=== PATIENT | female | born 1980 | race Caucasian/White ===

== ENCOUNTER 2020-03-30 16:01 | Outpatient (REF) | payer OTHER, SELFPAY ==
--- NOTE | 2020-03-30 | MM_ITS ---
EXAMINATION: MM SCREENING DIGITAL BREAST TOMOSYNTHESIS, BILATERAL CLINICAL INFORMATION: Screening. Asymptomatic. The lifetime risk of breast cancer based on the Tyrer-Cuzick Model is 11.1%. COMPARISON: Mammography: None TECHNIQUE: Digital breast tomosynthesis is performed in both the craniocaudal and mediolateral oblique views along with computer-aided detection (CAD). Synthesized 2D images are generated from the tomosynthesis. FINDINGS: The breasts are almost entirely fatty (ACR BI-RADS breast composition Category a). There are no significant masses, abnormal calcifications, or other abnormalities. MM/MM tomosynthesis screening BI IMPRESSION: No specific mammographic evidence to suggest malignancy. ASSESSMENT: BI-RADS 1: Negative RECOMMENDATION: Routine annual mammography screening. This patient's information was entered into a reminder system with a target due date for their next mammogram.
== END 2020-03-30 16:02 | disposition home or self-care (01) ==
LOC: HO.MAMMO 16:01
PROVIDERS: PCP Internal Medicine; Visit Provider Internal Medicine
DX: Z12.31 Encounter for screening mammogram for malignant neoplasm of breast (principal)
CPT/HCPCS: 77063; 77067

== ENCOUNTER 2020-12-13 08:04 | Outpatient (REF) | payer OTHER, SELFPAY ==
[2020-12-13 10:25] LABS: Alanine Aminotransferase 14 U/L (0-31); Albumin Level 4.5 g/dL (3.5-5.0); Alkaline Phosphatase 41 U/L (39-117); Anion Gap 13 (12-20); Aspartate Amino Transferase 18 U/L (5-31); Bilirubin Total 0.6 mg/dL (0.0-1.0); Blood Urea Nitrogen 16 mg/dL (9-16); Calcium 9.8 mg/dL (8.4-10.2); Carbon Dioxide 25 mmol/L (22-29); Chloride 106 mmol/L (96-108); Cholesterol 183 mg/dL; Estimated Glomerular Filt Rate > 60; Glucose Fasting 84 mg/dL (60-99); HDL Cholesterol 42 mg/dL; LDL Cholesterol Calculated 124 mg/dl; Potassium 5.2 mmol/L (3.3-5.1); Sodium 139 mmol/L (135-145); Total Protein 7.3 g/dL (6.5-8.0); Triglycerides 86 mg/dL
== END 2020-12-13 08:05 | disposition home or self-care (01) ==
LOC: HO.LAB 08:04
PROVIDERS: PCP Internal Medicine; Visit Provider Internal Medicine
DX: E78.5 Hyperlipidemia, unspecified (principal); E78.2 Mixed hyperlipidemia
CPT/HCPCS: 36415; 80053; 80061

== ENCOUNTER 2021-04-25 15:32 | Outpatient (REF) | payer OTHER, SELFPAY ==
--- NOTE | ~2021-04-25 | MM_ITS ---
EXAMINATION: MM SCREENING DIGITAL BREAST TOMOSYNTHESIS, BILATERAL CLINICAL INFORMATION: Screening. Asymptomatic. The lifetime risk of breast cancer based on the Tyrer-Cuzick Model is 11%. COMPARISON: Mammography: 03/30/2020 (baseline) TECHNIQUE: Digital breast tomosynthesis is performed in both the craniocaudal and mediolateral oblique views along with computer-aided detection (CAD). Synthesized 2D images are generated from the tomosynthesis. FINDINGS: The breasts are almost entirely fatty (ACR BI-RADS breast composition Category a). Background stromal densities are stable. There is a stable small nodule posterior 3:00 left breast, likely intramammary node. The axilla and skin contours are unremarkable. No significant changes. MM/MM tomosynthesis screening BI IMPRESSION: No mammographic evidence of malignancy. ASSESSMENT: BI-RADS 2: Benign RECOMMENDATION: Routine annual mammography screening. This patient's information was entered into a reminder system with a target due date for their next mammogram.
== END 2021-04-25 15:33 | disposition home or self-care (01) ==
LOC: HO.MAMMO 15:32
PROVIDERS: PCP Internal Medicine; Visit Provider Internal Medicine
DX: Z12.31 Encounter for screening mammogram for malignant neoplasm of breast (principal)
CPT/HCPCS: 77063; 77067

== ENCOUNTER 2021-11-01 16:00 | Outpatient (REF) | payer OTHER, SELFPAY ==
[2021-11-01 16:52] LABS: Alanine Aminotransferase 14 U/L (0-31); Albumin Level 4.2 g/dL (3.5-5.0); Alkaline Phosphatase 37 U/L (39-117); Anion Gap 12 (12-20); Aspartate Amino Transferase 17 U/L (5-31); Bilirubin Total 0.5 mg/dL (0.0-1.0); Blood Urea Nitrogen 14 mg/dL (9-16); Calcium 8.9 mg/dL (8.4-10.2); Carbon Dioxide 26 mmol/L (22-29); Chloride 104 mmol/L (96-108); Estimated Glomerular Filt Rate > 60; Glucose Random 94 mg/dL (60-115); Potassium 4.2 mmol/L (3.3-5.1); Sodium 138 mmol/L (135-145)
== END 2021-11-01 16:01 | disposition home or self-care (01) ==
LOC: HO.LAB 16:00
PROVIDERS: PCP Internal Medicine; Visit Provider Internal Medicine
DX: R03.0 Elevated blood-pressure reading, without diagnosis of hypertension (principal)
CPT/HCPCS: 36415; 80053

== ENCOUNTER 2022-09-21 09:28 | Outpatient (REF) | payer OTHER, SELFPAY ==
--- NOTE | ~2022-09-21 | MM_ITS ---
EXAMINATION: MM SCREENING DIGITAL BREAST TOMOSYNTHESIS, BILATERAL CLINICAL INFORMATION: Screening. Asymptomatic. The lifetime risk of breast cancer based on the Tyrer-Cuzick Model is 11%. COMPARISON: Mammography: 04/25/2021, 03/30/2020 (baseline). TECHNIQUE: Digital breast tomosynthesis is performed in both the craniocaudal and mediolateral oblique views along with computer-aided detection (CAD). Synthesized 2D images are generated from the tomosynthesis. FINDINGS: The breasts are almost entirely fatty (ACR BI-RADS breast composition Category a). There are no significant masses, abnormal calcifications, or other abnormalities. No architectural abnormality or developing density or significant change from prior studies. Small intramammary node again seen posterior outer left breast. Background stromal markings are normal. MM/MM tomosynthesis screening BI IMPRESSION: No mammographic evidence of malignancy. ASSESSMENT: BI-RADS 2: Benign RECOMMENDATION: Routine annual mammography screening. This patient's information was entered into a reminder system with a target due date for their next mammogram.
== END 2022-09-21 09:29 | disposition home or self-care (01) ==
LOC: HO.MAMMO 09:28
PROVIDERS: PCP Internal Medicine; Visit Provider Internal Medicine
DX: Z12.31 Encounter for screening mammogram for malignant neoplasm of breast (principal)
CPT/HCPCS: 77063; 77067

== ENCOUNTER 2023-01-14 13:50 | Outpatient (AMB) | payer OTHER, SELFPAY ==
[2023-01-14 13:59] VITALS: BP 102/78; PULSE 94; O2SAT 100; BMI 21.3
--- NOTE | 2023-01-14 13:59 | MHC.PC.OV ---
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 Harrington. Medical history significant for anxiety and mixed hyperlipidemia among others. Patient reports left upper quadrant uncomfortable feeling and feeling like there is something inside. She also reports intermittent left flank discomfort-reports might be related to her herniated disc in the back. She denies changes in bladder. Reports intermittent diarrhea since starting semaglutide injections 05/2022. Reports intermittent gas. No constipation. No nausea or vomiting. No shortness of breath or chest pain. [facility] Medical History Anxiety Elevated blood pressure reading Mixed hyperlipidemia Transaminitis Surgical History No pertinent past surgical history Family History Father Bladder cancer Pituitary tumor Diabetes mellitus Dementia Mother Hypertension Maternal Grandmother Hypertension Paternal Grandmother Chronic mental illness Paternal Grandfather No problems noted. Family/Other Chronic mental illness Social History Housing: House Alcohol intake: current Alcohol intake frequency: holidays/special occasions only Alcohol type: wine Patient Tobacco Use Status: Former Tobacco user Tobacco use type: Cigarette e-Cigarette/Vaping Use: Never Used Second Hand Smoke Exposure: No service: No Current occupational status: employed Current occupational exposures/hazards: No Cognitive needs: No Hearing needs: No Vision needs: No Questionnaire Thrive Questionnaire Date Thrive assessed: 07/18/22 AUDIT C Alcohol Use Questionnaire (AUDIT-C) 1. How often do you have a drink containing alcohol?: Never Total Score: 0 Score Reviewed/Action Taken: No ROSSI-7 AMB Questionnaire ROSSI-7 Date ROSSI - 7 assessed: 07/18/22 Feeling nervous, anxious, or on edge: 1 = Several days Not being able to stop or control worryin = Not at all Worrying too much about different things: 0 = Not at all Trouble relaxin = Not at all Being so restless that it is hard to sit still: 0 = Not at all Becoming easily annoyed or irritable: 0 = Not at all Feeling afraid as if something awful might happen: 0 = Not at all Total ROSSI-7 score (0-4 normal; 5-9 mild; 10-14 moderate; 15-21 severe): 1 Source: Developed by Drs. Mehdi Luciano, Carisa Dominguez, Jaden Sorenson and colleagues, with an educational shawna from [employer]. ROSSI-7 Assessment Billing ROSSI-7 Assessment Tool: ROSSI-7 Assessment 98334 Review of Systems Const Denies body aches, Denies chills, Denies fever(s) and Denies headache(s) Eyes Denies change in vision ENT Denies dizziness, Denies otalgia, Denies headache(s), Denies nasal discharge, Denies sinus pain and Denies sore throat Card Denies chest pain, Denies edema, Denies lightheadedness and Denies dyspnea Resp Denies cough, Denies dyspnea and Denies wheezing GI Details: Intermittent gas Reports as per HPI, Denies abdominal pain, Denies constipation, Reports diarrhea (Intermittent), Denies nausea and Denies vomiting Denies dysuria Musc Denies myalgias Skin/Breast Denies rash Neuro Denies dizziness and Denies headache(s) Aller/Immun Denies wheezing Physical exam (Primary Care) Vital Signs: Last Vital Signs Pulse 94 01/14/23 13:59 BP 102/78 01/14/23 13:59 Pulse Ox 100 01/14/23 13:59 Oxygen Delivery Method Room Air 01/14/23 13:59 BMI result Body Mass Index 21.3 Tobacco/Smoking Status: Tobacco use Status Tobacco use date assessed 01/14/23 01/14/23 14:03 Patient Tobacco Use Status Former Tobacco user 01/14/23 14:03 Tobacco use type Cigarette 01/14/23 14:03 e-Cigarette/Vaping Use Never Used 01/14/23 14:03 Thrive Assessment: Date of Thrive Assessment Date Thrive assessed 07/18/22 01/14/23 14:03 Const General: cooperative and no acute distress Orientation/consciousness: patient oriented x3 HENMT Head: Yes normocephalic and Yes atraumatic Face and sinus: Yes sinuses nontender Mouth: oropharynx normal and moist mucous membranes Throat: Yes posterior oropharynx normal Eyes General: appearance normal, both eyes and all related structures Neck Neck: Yes normal visual inspection, Yes full ROM and Yes no lymphadenopathy Resp Effort & Inspection: normal respiratory effort and able to speak in complete sentences Auscultation: clear to auscultation bilaterally, no crackles, no rales, no rhonchi and no wheezes Cardio Rate: regular rate Rhythm: regular rhythm Heart sounds: S1 normal heart sound present and S2 normal heart sound present GI Inspection: Yes normal to inspection Palpation (GI): Soft to palpation, not firm, nontender, no guarding, not rigid and no hepatosplenomegaly Auscultation: normal bowel sounds General: No CVA tenderness Back/Spine/Pelvis Back: No CVA tenderness Skin General skin exam: no rashes or lesions noted Neuro General: patient oriented x3 Gait exam (Neuro): Normal gait present Extrem General: Yes full ROM and No edema Results AMB Urinalysis, Automated UA Leukoctes 0 Camryn/uL Last Edit by FRANKLIN Johnson on 01/14/23 14:20 UA Nitrite Negative Last Edit by FRANKLIN Johnson on 01/14/23 14:20 UA Urobilinogen 0.2 mg/dL Last Edit by FRANKLIN Johnson on 01/14/23 14:20 UA Protein 0 mg/dL Last Edit by FRANKLIN Johnson on 01/14/23 14:20 UA pH 6.5 Last Edit by FRANKLIN Johnson on 01/14/23 14:20 UA Blood 0 Rashid/uL Last Edit by FRANKLIN Johnson on 01/14/23 14:20 UA Specific Causey 1.015 Last Edit by FRANKLIN Johnson on 01/14/23 14:20 UA Ketone Negative Last Edit by FRANKLIN Johnson on 01/14/23 14:20 UA Bilirubin 0 mg/dL Last Edit by Cadence De La O GRACEJina on 01/14/23 14:20 UA Glucose 0 mg/dL Last Edit by Cadence De La O FRANKLIN on 01/14/23 14:20 Assessment and Plan Assessment & Plan (1) LUQ discomfort: Code(s): R10.12 - Left upper quadrant pain Plan: Urinalysis negative in the office today, patient denies any urinary symptoms. Physical exam with no acute findings. Will obtain abdominal ultrasound and blood work. Will notify of the results. Keep appointment with PCP as scheduled or follow-up sooner as needed. Signs and symptoms reviewed when to notify provider or go to the emergency department. Patient agreed with the plan. Orders: Orders Comprehensive Met. Panel Today R10.12 - Left upper quadrant pain Lipase Today R10.12 - Left upper quadrant pain Complete Blood Count Auto Diff Today R10.12 - Left upper quadrant pain US abdomen complete Today R10.12 - Left upper quadrant pain AMB Urinalysis Automated Today R10.9 - Unspecified abdominal pain Coding Level of Care Code Est Pt Level 3 (25633) Diagnoses LUQ discomfort R10.12 Additional Codes ROSSI-7 Assessment Billing - ROSSI-7 Assessment Tool: ROSSI-7 Assessment 82728 ([id number])
== END 2023-01-14 14:20 | disposition home or self-care (01) ==
PROVIDERS: PCP Internal Medicine; Visit Provider Nurse Practitioner Family
DX: R10.12 Left upper quadrant pain (principal); R10.9 Unspecified abdominal pain
CPT/HCPCS: 81003; 99213

== ENCOUNTER 2023-01-14 14:25 | Outpatient (REF) | payer OTHER, SELFPAY ==
[2023-01-14 14:37] LABS: MANUAL DIFF FLAG NO
[2023-01-14 14:46] LABS: Basophils Percent Auto 0.3 % (0-2); Eosinophils Absolute Auto 0.1 X10*3/uL (0.0-0.4); Eosinophils Percent Auto 1.2 % (0-4); Hematocrit 39.3 % (37.0-47.0); Imm Gran Abs Auto 0.01 X10*3/uL (0.00-0.03); Imm Gran Pct Auto 0.2 % (0.0-0.4); Lymphocytes Absolute Auto 1.7 X10*3/uL (1.2-4.9); Lymphocytes Percent Auto 29.3 % (20-40); Mean Corpuscular HGB Conc 33.1 g/dl (31.0-35.0); Mean Corpuscular Hemoglobin 29.4 pg (27.0-33.0); Mean Corpuscular Volume 88.9 fL (80.0-98.0); Mean Platelet Volume 9.9 fL (9.4-12.3); Monocytes Absolute Auto 0.3 X10*3/uL (0.1-1.2); Monocytes Percent Auto 4.3 % (2-11); Neutrophils Absolute Auto 3.8 x10*3/uL (2.0-8.3); Neutrophils Percent Auto 64.7 % (45-73); Platelet Count 273 X10*3/uL (160-400); Red Blood Count 4.42 X10*6/uL (4.20-5.50); Red Cell Distribution Width 12.7 % (11.0-16.0); White Blood Count 5.8 X10*3/uL (4.8-10.8)
[2023-01-14 15:17] LABS: Alanine Aminotransferase 13 U/L (0-31); Albumin Level 4.3 g/dL (3.5-5.0); Alkaline Phosphatase 61 U/L (39-117); Anion Gap 8 (12-20); Aspartate Amino Transferase 16 U/L (5-31); Bilirubin Total 0.7 mg/dL (0.0-1.0); Blood Urea Nitrogen 12 mg/dL (9-16); Calcium 9.9 mg/dL (8.4-10.2); Carbon Dioxide 30 mmol/L (22-29); Chloride 108 mmol/L (96-108); Estimated Glomerular Filt Rate > 60; Glucose Random 88 mg/dL (60-115); Lipase 40 U/L (8-78); Potassium 4.3 mmol/L (3.3-5.1); Sodium 142 mmol/L (135-145)
== END 2023-01-14 14:26 | disposition home or self-care (01) ==
LOC: HO.LAB 14:25
PROVIDERS: PCP Internal Medicine; Visit Provider Nurse Practitioner Family
DX: R10.12 Left upper quadrant pain (principal)
CPT/HCPCS: 36415; 80053; 83690; 85025

== ENCOUNTER 2023-02-07 08:58 | Outpatient (REF) | payer OTHER, SELFPAY ==
--- NOTE | ~2023-02-07 | US_ITS ---
EXAMINATION: US ABDOMEN COMPLETE CLINICAL INFORMATION: Left upper quadrant pain. COMPARISON: None available. TECHNIQUE: Real-time imaging of the abdominal viscera. Limited visualization due to bowel gas. FINDINGS: PANCREAS: Limited visualization. ABDOMINAL AORTA: Nonaneurysmal. INFERIOR VENA CAVA: Visualized portions are normal. LIVER: Diffusely heterogeneous hepatic echotexture with mild increase in echogenicity of the liver is characteristic of primary hepatocellular disease, possibly due to hepatic steatosis and further limits visualization. GALLBLADDER: No gallstones. No gallbladder wall thickening. COMMON BILE DUCT: Normal in caliber measuring 0.3 cm in diameter. RIGHT KIDNEY: No hydronephrosis. No renal calculi. Limited visualization. 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 The kidney measures 10.6 cm in maximum dimension. LEFT KIDNEY: Normal. No hydronephrosis. No renal calculi or focal parenchymal lesions. The kidney measures 11.3 cm in maximum dimension. SPLEEN: Normal. The spleen measures 10.4 cm in maximum dimension. FREE FLUID: None. ADDITIONAL FINDINGS: Targeted ultrasound images were obtained by the satellite installer of the area of concern as indicated by the patient in the left upper quadrant, just superior, lateral and to the left of the umbilicus. No discrete hernia, mass or fluid collection identified, although visualization limited due to bowel gas. Radiologist was not in attendance. Images were later provided for interpretation. US/US abdomen complete IMPRESSION: 1. Diffusely heterogeneous hepatic echotexture with mild increase in echogenicity of the liver is characteristic of primary hepatocellular disease, possibly due to hepatic steatosis and further limits visualization. 2. No discrete hernia, mass or fluid collection identified in the area of concern indicated by the patient in the left upper quadrant, just superior, lateral and to the left of the umbilicus. CT scan should be considered for further evaluation.
== END 2023-02-07 08:59 | disposition home or self-care (01) ==
LOC: HO.HMGCX 08:58
PROVIDERS: PCP Internal Medicine; Visit Provider Nurse Practitioner Family
DX: R10.12 Left upper quadrant pain (principal)
CPT/HCPCS: 76700

== ENCOUNTER 2023-05-21 07:23 | Outpatient (AMB) | payer OTHER, SELFPAY ==
--- NOTE | 2023-05-21 07:44 | MHC.OFFVIS ---
Intake Vital Signs 05/21/23 07:45 Height 5 ft 5 in Weight 120 lb BMI 20.0 BP 103/54 L Blood Pressure Location Lt brachial Position Sitting Pulse 80 Intake Visit Reasons: LUQ Pains Intake Note: Patient new consult for LUQ pain. Patient cc: LUQ pain with bloating. 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 However she did have a abdominal ultrasound with no findings to account for her symptoms We reviewed abdominal ultrasound-noting likely steatosis, recommending CT for further eval Appetite is good, bowels with no issue-she otherwise feels well No nausea, vomiting, diarrhea, fevers or chills PFSH Medical History Anxiety Elevated blood pressure reading Mixed hyperlipidemia Transaminitis Surgical History No pertinent past surgical history Family History Father Bladder cancer Pituitary tumor Diabetes mellitus Dementia Mother Hypertension Maternal Grandmother Hypertension Paternal Grandmother Chronic mental illness Paternal Grandfather No problems noted. 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, [employer] Current occupational exposures/hazards: No Cognitive needs: No Hearing needs: No Vision needs: No Review of Systems Const All systems reviewed & are unremarkable except as noted in HPI and below Card Denies chest pain GI Reports abdominal pain, Reports bloating, Denies hematochezia, Denies heartburn, Denies nausea and Denies vomiting Psych Denies anxiety Physical Exam Vital Signs: Last Vital Signs Pulse 80 05/21/23 07:45 BP 103/54 L 05/21/23 07:45 BMI result Body Mass Index 20.0 Const General: cooperative, healthy appearing and comfortable Orientation/consciousness: patient oriented x3 Limitations: no limitations Eyes Sclerae: sclerae normal Resp Effort & Inspection: normal respiratory effort and able to speak in complete sentences Auscultation: clear to auscultation bilaterally, no rales, no rhonchi and no wheezes Cardio Rate: regular rate Rhythm: regular rhythm Heart sounds: S1 normal heart sound present and S2 normal heart sound present GI Inspection: Yes striae Palpation (GI): Soft to palpation and nontender Percussion: Yes normal to percussion Auscultation: normal bowel sounds Skin General skin exam: no rashes or lesions noted Neuro General: patient oriented x3 Extrem General: Yes full ROM Psych Appearance: grossly normal and well kempt Mental Status: mental status grossly normal Speech and movement: Normal speech and movement present and Clear speech present Attitude: cooperative Thought process: Normal thought process present Thought content: Normal thought content present Insight: Good insight present (Psych) Judgement: Good judgement present (Psych) Results Reviewed Results Reviewed: 01/2023- US/US abdomen complete IMPRESSION: 1. Diffusely heterogeneous hepatic echotexture with mild increase in echogenicity of the liver is characteristic of primary hepatocellular disease, possibly due to hepatic steatosis and further limits visualization. 2. No discrete hernia, mass or fluid collection identified in the area of concern indicated by the patient in the left upper quadrant, just superior, lateral and to the left of the umbilicus. CT scan should be considered for further evaluation. Assessment & Plan Assessment & Plan (1) LUQ discomfort: Comment: Physical exam unremarkable Will get CT to follow-up on ultrasound as recommended Code(s): R10.12 - Left upper quadrant pain Plan: pt to call for results (2) Bloating symptom: Code(s): R14.0 - Abdominal distension (gaseous) Plan Abdominal CT Recheck liver enzymes She may call for results Orders: Orders Comprehensive Met. Panel Today K58.9 - Irritable bowel syndrome without diarrhea Complete Blood Count Auto Diff Today R10.12 - Left upper quadrant pain, R14.0 - Abdominal distension (gaseous) CT abdomen wo/w IV con Today R93.89 - Abnormal findings on diagnostic imaging of other specified body structures Medications: New barium sulfate 2%(w/v) (Readi-Cat 2) 450 mL PO DIRECTED 900 mL 0RF 1 day Patient Instructions: Abdominal CT Recheck liver enzymes She may call for results Coding Level of Care Code New Pt Level 3 (77452) Diagnoses LUQ discomfort R10.12 Bloating symptom R14.0 Time Spent (min) 30
[2023-05-21 07:45] VITALS: BP 103/54; PULSE 80
== END 2023-05-21 08:47 | disposition home or self-care (01) ==
PROVIDERS: PCP Internal Medicine; Visit Provider Physician Assistant
DX: R10.12 Left upper quadrant pain (principal); R14.0 Abdominal distension (gaseous)
CPT/HCPCS: 99203

== ENCOUNTER → 2023-05-21 07:23 | Outpatient (BNVA) | payer OTHER, SELFPAY | PROVIDERS: PCP Internal Medicine; Visit Provider Physician Assistant ==

== ENCOUNTER 2023-07-10 10:29 | Outpatient (REF) | payer OTHER, SELFPAY ==
--- NOTE | ~2023-07-10 | CT_ITS ---
EXAMINATION: CT ABDOMEN WITHOUT AND WITH CONTRAST CLINICAL INFORMATION: Abnormal finding on previous diagnostic imaging. COMPARISON: Ultrasound abdomen 02/07/2023: Diffusely heterogeneous hepatic echotexture with mild increase in echogenicity of the liver is characteristic of primary hepatocellular disease, possibly due to hepatic steatosis. TECHNIQUE: Contiguous axial thin section helical images of the abdomen were performed before and after the administration of oral contrast and 85 mL of Omnipaque 350 intravenous contrast. The data set was reformatted in the coronal and sagittal planes and reviewed on an independent workstation. This CT examination was performed using dose optimization techniques as appropriate, variously including the following: *Automated exposure control *Adjustment of mA and/or kV according to patient size (this includes techniques or standardized protocols for targeted exams where dose is matched to indication/reason for exam; i.e. extremities or head) *Use of iterative reconstruction technique DLP: 267 mGy-cm FINDINGS: LUNG BASES: The visualized lung bases are unremarkable. LIVER, GALLBLADDER, AND BILIARY TREE: The liver is normal in size, shape, and attenuation. Attenuation on noncontrast imaging is greater than the spleen which is not suggestive of steatosis which was suggested on the prior ultrasound. Hypodensity adjacent to the falciform ligament consistent with focal fatty infiltration. No worrisome solid focal hepatic lesion or biliary ductal dilatation is present. The gallbladder is unremarkable with no evidence of radiopaque gallstones, gallbladder wall thickening, or obvious pericholecystic inflammatory changes. PANCREAS: Unremarkable. SPLEEN: Unremarkable. ADRENAL GLANDS: Unremarkable. KIDNEYS AND URETERS: The kidneys are normal in size, shape, and attenuation. No hydronephrosis, hydroureter, or calculi seen. No perinephric stranding. GASTROINTESTINAL TRACT: The visualized small and large bowel are unremarkable. The appendix is not included on this exam. ABDOMINAL WALL: No significant hernia is appreciated. LYMPH NODES: Normal. VASCULAR: Unremarkable. OSSEOUS STRUCTURES: Degenerative changes are present at L5-S1. There is a Schmorl's node involving the superior endplate of T11. CT/CT abdomen wo/w IV con IMPRESSION: No significant abnormality is seen. The liver is normal in size, shape and attenuation. No evidence to suggest hepatic steatosis. There is focal fatty infiltration adjacent to the falciform ligament, of no clinical significance. Fleischner guidelines were followed.
[2023-07-10] MEDS: iohexoL 350 MG/ML 100 ML INFUS..BTL 85 ML IV (12:15)
== END 2023-07-10 10:30 | disposition home or self-care (01) ==
LOC: HO.CT 10:29
PROVIDERS: PCP Internal Medicine; Visit Provider Physician Assistant
DX: R93.89 Abnormal findings on diagnostic imaging of other specified body structures (principal)
CPT/HCPCS: 74170; Q9967

== ENCOUNTER 2023-09-27 09:42 | Outpatient (REF) | payer OTHER, SELFPAY | END 2023-09-27 09:43 | disposition home or self-care (01) | LOC: HO.MAMMO 09:42 | PROVIDERS: PCP Internal Medicine; Visit Provider Internal Medicine | DX: Z12.31 Encounter for screening mammogram for malignant neoplasm of breast (principal) | CPT/HCPCS: 77063; 77067 ==

== ENCOUNTER → 2023-09-27 09:45 | Outpatient (BNV) | payer OTHER, SELFPAY | PROVIDERS: PCP Internal Medicine; Visit Provider Radiology Diagnostic Radiology | DX: Z12.31 Encounter for screening mammogram for malignant neoplasm of breast (principal) | CPT/HCPCS: 77063; 77067 ==

== ENCOUNTER 2024-03-30 15:49 | Outpatient (AMB) | payer OTHER, SELFPAY ==
--- NOTE | 2024-03-30 15:57 | MHC.PC.OV ---
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 Accompanied by: Self / Same As Patient Allergies azithromycin [Zithromax Z-Geovani] Allergy (Intermediate, Verified 03/30/24 16:16) nauseas Medication List - Last Reconciled 03/30/24 by Susannah Dunlap MD alprazolam (Xanax) 0.5 mg PO BID PRN 30 days barium sulfate 2%(w/v) (Readi-Cat 2) 450 mL PO DIRECTED 1 day ibuprofen 800 mg PO Q8H PRN 30 days propranolol 10 mg PO BID PRN 30 days semaglutide 0.5 mg subcut QWEEK valacyclovir 1,000 mg PO Q8H PRN 5 days Tobacco use date assessed: 03/30/24 Dental Screening Dental Screen Date: 03/30/24 Did you have a dental visit in the last 12 months?: No Did you have a dental problem in the last 6 months where you did not have access to dental care?: No HPI HPI Comments History of Present Illness Details This is a 43-year-old female that comes for her physical exam. Mammogram done 2023. Pap smear done last year was abnormal and had a colposcopy. Will have another Pap smear this year at [facility] [place] [facility]. Complains of hot flashes and will discuss it with OBGYN. No chest pain or shortness on breath. [facility] Medical History (Updated 03/30/24 @ 16:29 by Susannah Dunlap MD) UTI (urinary tract infection) Transaminitis Mixed hyperlipidemia Elevated blood pressure reading Anxiety Surgical History No pertinent past surgical history Family History Father Bladder cancer Pituitary tumor Diabetes mellitus Dementia Mother Hypertension Maternal Grandmother Hypertension Paternal Grandmother Chronic mental illness Paternal Grandfather No problems noted. 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 1. Little interest or pleasure in doing things: not at all 2. Feeling down, depressed, or hopeless: not at all 3. Trouble falling or staying asleep, or sleeping too much: several days 4. Feeling tired or having little energy: not at all 5. Poor appetite or overeating: not at all 6. Feeling bad about yourself - or that you are a failure or have let yourself or your family down: not at all 7. Trouble concentrating on things, such as reading the newspaper or watching television: several days 8. Moving or speaking so slowly that other people could have noticed. Or the opposite - being so fidgety or restless that you have been moving around a lot more than usual: not at all 9. Thoughts that you would be better off or of hurting yourself in some way: not at all Total score: 2 Depression Screening Interpretation: Negative Depression Screening Done: Yes 67693 - PHQ-9 Billing: Yes Source: Developed by Drs. Mehdi Luciano, Carisa Dominguez, Jaden Sorenson and colleagues, with an educational shawna from [email or web address]. Thrive Questionnaire Date Thrive assessed: 03/23/24 I am a: Patient What is your living situation today?: I have a steady place to live Within the past 12 months, did the food you bought not last and you didn't have the money to get more?: Never true Within the past 12 months, did you worry whether your food would run out before you got money to buy more?: Never true Do you have trouble paying for medicines?: No Do you have trouble getting transportation to medical appointments?: No Do you have trouble paying your heating and electricity bill?: No Do you have trouble taking care of your child, family member or friend?: No Do you have trouble with day-to-day activities such as bathing, preparing meals, shopping, managing finances, etc.?: No Are you currently unemployed and looking for a job?: No Are you interested in more education?: No Please select the resources that you would like help with: None Currently or been in a relationship where the following occur: No concerns reported THRIVE Score: 0 AUDIT C Alcohol Use Questionnaire (AUDIT-C) 1. How often do you have a drink containing alcohol?: Never Total Score: 0 ROSSI-7 AMB Questionnaire ROSSI-7 Date ROSSI - 7 assessed: 03/30/24 Feeling nervous, anxious, or on edge: 1 = Several days Not being able to stop or control worryin = Several days Worrying too much about different things: 0 = Not at all Trouble relaxin = Several days Being so restless that it is hard to sit still: 0 = Not at all Becoming easily annoyed or irritable: 0 = Not at all Feeling afraid as if something awful might happen: 0 = Not at all Total ROSSI-7 score (0-4 normal; 5-9 mild; 10-14 moderate; 15-21 severe): 3 Source: Developed by Drs. Mehdi Luciano, Carisa Dominguez, Jaden Sorenson and colleagues, with an educational shawna from [email or web address]. ROSSI-7 Assessment Billing ROSSI-7 Assessment Tool: ROSSI-7 Assessment 66957 Review of Systems Const All systems reviewed & are unremarkable except as noted in HPI and below Card Denies chest pain at rest, Denies chest pain with activity, Denies edema, Denies irregular heart rhythm, Denies claudication, Denies dyspnea, Denies dyspnea on exertion, Denies orthopnea, Denies paroxysmal nocturnal dyspnea and Denies slow heart rate Resp Denies cough, Denies dyspnea and Denies dyspnea on exertion Physical exam (Primary Care) Vital Signs: Last Vital Signs BP 120/72 03/30/24 15:58 BMI result Body Mass Index 20.5 Tobacco/Smoking Status: Tobacco use Status Tobacco use date assessed 03/30/24 03/30/24 16:00 Patient Tobacco Use Status Former Tobacco user 03/30/24 16:00 Tobacco use type Cigarette 03/30/24 16:00 e-Cigarette/Vaping Use Never Used 03/30/24 16:00 PHQ-9: PHQ-9 Score PHQ-9: Total score 2 03/30/24 16:07 Depression Screening Interpretation: Negative Thrive Assessment: Date of Thrive Assessment Date Thrive assessed 03/23/24 03/30/24 16:00 Currently or been in a relationship where the following occur: No concerns reported [facility] Head: Yes normal to inspection, Yes normocephalic and Yes atraumatic Ears: external ears normal Eyes General: appearance normal, both eyes and all related structures Eyelids: Yes eyelids normal Conjunctivae: conjunctivae normal Neck Neck: Yes normal visual inspection and Yes supple Resp Effort & Inspection: normal respiratory effort Auscultation: clear to auscultation bilaterally Cardio Jugular venous distension: no JVD Rate: regular rate Rhythm: regular rhythm Heart sounds: S1 normal heart sound present and S2 normal heart sound present GI Inspection: Yes normal to inspection Palpation (GI): Soft to palpation and nontender Auscultation: normal bowel sounds Skin General skin exam: no rashes or lesions noted Neuro General: no focal motor deficits Extrem General: Yes full ROM Psych Appearance: grossly normal Coding Level of Care Code Est Pt Prev Care 40-64y(61568) Diagnoses Physical exam Z00.00 Additional Codes PHQ-9 - 27947 - PHQ-9 Billing: Yes ([id number]) ROSSI-7 Assessment Billing - ROSSI-7 Assessment Tool: ROSSI-7 Assessment 55497 ([id number]) Time Spent (min) 30 Assessment & Plan Assessment & Plan (1) Physical exam: Code(s): Z00.00 - Encounter for general adult medical examination without abnormal findings Category: Medical Plan: Repeat in a year. Orders: Orders Lipid Panel Today E78.5 - Hyperlipidemia, unspecified Comprehensive Laie. Panel Fast Today Z00.00 - Encounter for general adult medical examination without abnormal findings
[2024-03-30 15:58] VITALS: BP 120/72; BMI 20.5
== END 2024-03-30 16:33 | disposition home or self-care (01) ==
LOC: HO.HMCH 15:50
PROVIDERS: PCP Internal Medicine; Visit Provider Internal Medicine
DX: Z00.00 Encounter for general adult medical examination without abnormal findings (principal)

== ENCOUNTER → 2024-03-30 15:49 | Outpatient (BNVA) | payer OTHER, SELFPAY | PROVIDERS: PCP Internal Medicine; Visit Provider Internal Medicine | DX: Z00.00 Encounter for general adult medical examination without abnormal findings (principal) | CPT/HCPCS: 96127 ==

== ENCOUNTER → 2024-10-02 09:00 | Outpatient (BNV) | payer OTHER, SELFPAY | PROVIDERS: PCP Internal Medicine; Referring Provider Nurse Practitioner Women's Health; Visit Provider Internal Medicine | DX: Z12.31 Encounter for screening mammogram for malignant neoplasm of breast (principal) | CPT/HCPCS: 77063; 77067 ==

== ENCOUNTER 2024-10-02 09:32 | Outpatient (REF) | payer OTHER, SELFPAY | END 2024-10-02 09:33 | disposition home or self-care (01) | LOC: HO.MAMMO 09:32 | PROVIDERS: PCP Internal Medicine; Referring Provider Nurse Practitioner Women's Health; Visit Provider Internal Medicine | DX: Z12.31 Encounter for screening mammogram for malignant neoplasm of breast (principal) | CPT/HCPCS: 77063; 77067 ==

== ENCOUNTER 2025-03-29 08:01 | Outpatient (REF) | payer OTHER, SELFPAY ==
[2025-03-29 08:59] LABS: Alanine Aminotransferase 26 U/L (0-31); Albumin Level 4.4 g/dL (3.5-5.0); Alkaline Phosphatase 50 U/L (39-117); Anion Gap 8 (12-20); Aspartate Amino Transferase 21 U/L (5-31); Blood Urea Nitrogen 14 mg/dL (9-16); Calcium 8.6 mg/dL (8.4-10.2); Carbon Dioxide 27 mmol/L (22-29); Chloride 110 mmol/L (96-108); Cholesterol 162 mg/dL (<200); Estimated Glomerular Filt Rate > 60; HDL Cholesterol 51 mg/dL (>40); Potassium 4.3 mmol/L (3.3-5.1); Sodium 141 mmol/L (135-145); Total Protein 6.8 g/dL (6.5-8.0); Triglycerides 34 mg/dL (<150)
== END 2025-03-29 08:02 | disposition home or self-care (01) ==
LOC: HO.LAB 08:01
PROVIDERS: PCP Internal Medicine; Visit Provider Internal Medicine
DX: Z00.00 Encounter for general adult medical examination without abnormal findings (principal); E78.5 Hyperlipidemia, unspecified; E55.9 Vitamin D deficiency, unspecified
CPT/HCPCS: 36415; 80053; 80061; 82306

== ENCOUNTER 2025-04-06 15:50 | Outpatient (AMB) | payer OTHER, SELFPAY ==
--- NOTE | 2025-04-06 15:54 | MHC.PC.OV ---
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 by: Self / Same As Patient Allergies azithromycin (Zithromax Z-Geovani) Allergy (Intermediate, Verified 04/06/25 16:10) nauseas Medication List - Last Reconciled 04/06/25 by Susannah Dunlap MD alprazolam 0.25 mg PO QID PRN 30 days ibuprofen 800 mg PO Q8H PRN 30 days propranolol 10 mg PO BID PRN 30 days semaglutide 0.5 mg subcut QWEEK valacyclovir 1,000 mg PO Q8H PRN 5 days Tobacco use date assessed: 04/06/25 Dental Screening Dental Screen Date: 04/06/25 Did you have a dental visit in the last 12 months?: Yes Did you have a dental problem in the last 6 months where you did not have access to dental care?: No Was dental information given to patient?: Patient has dentist HPI HPI Comments History of Present Illness Details The patient is a 44-year-old female presenting for an annual physical exam. Recent blood work revealed an elevated vitamin D level of 86, while cholesterol, kidney function, liver function, and blood sugar were normal. The patient confirms taking a vitamin D supplement and eating yogurt daily. Her current medications include alprazolam and ibuprofen as needed, propranolol occasionally for public speaking, a stable dose of semaglutide 0.5 mg, and valacyclovir as needed for herpes outbreaks. She recently started hormone replacement therapy with a low-dose estradiol patch and has an IUD, resulting in amenorrhea. She reports an allergy to CPAP, which causes nausea. Past surgical history is significant for an abdominoplasty in April 2024. Social history reveals she has quit drinking alcohol and smoking. She reports occasional trouble sleeping and feeling tired, and uses melatonin to help with sleep. Family history is notable for her father, who at age 75 with dementia and a pituitary tumor, and had a history of bladder cancer. Her mother is alive and has hypertension. There is no family history of colon cancer. The patient is 44 and due for colon cancer screening. The options of colonoscopy and Cologuard were discussed, with a recommendation for colonoscopy as the gold standard. A referral for a colonoscopy will be placed. The patient confirmed she had a mammogram in September and has already received her flu shot. [facility] Medical History UTI (urinary tract infection) Transaminitis Mixed hyperlipidemia Elevated blood pressure reading Anxiety Surgical History (Updated 04/06/25 @ 16:18 by Susannah Dunlap MD) H/O abdominoplasty No pertinent past surgical history Family History Father Bladder cancer Pituitary tumor Diabetes mellitus Dementia Mother Hypertension Maternal Grandmother Hypertension Paternal Grandmother Chronic mental illness Paternal Grandfather No problems noted. Family/Other Chronic mental illness Social History Housing: House Alcohol intake: former Patient Tobacco Use Status: Former Tobacco user Tobacco use type: Cigarette e-Cigarette/Vaping Use: Never Used Second Hand Smoke Exposure: No service: No Current occupational status: employed Current occupation: [employer] Current occupational exposures/hazards: No Cognitive needs: No Hearing needs: No Vision needs: No Questionnaire PHQ-9 Over the last 2 weeks, how often have you been bothered by any of the following problems? 1. Little interest or pleasure in doing things: not at all 2. Feeling down, depressed, or hopeless: not at all 3. Trouble falling or staying asleep, or sleeping too much: not at all 4. Feeling tired or having little energy: several days 5. Poor appetite or overeating: not at all 6. Feeling bad about yourself - or that you are a failure or have let yourself or your family down: not at all 7. Trouble concentrating on things, such as reading the newspaper or watching television: not at all 8. Moving or speaking so slowly that other people could have noticed. Or the opposite - being so fidgety or restless that you have been moving around a lot more than usual: not at all 9. Thoughts that you would be better off or of hurting yourself in some way: not at all Total score: 1 Depression Screening Interpretation: Negative Depression Screening Done: Yes 57640 - PHQ-9 Billing: Yes Source: Developed by Drs. Mehdi Luciano, Jaden Cavazos and colleagues, with an educational shawna from [employer]. Thrive Questionnaire Date Thrive assessed: 03/30/25 I am a: Patient What is your living situation today?: I have a steady place to live Within the past 12 months, did the food you bought not last and you didn't have the money to get more?: Never true Within the past 12 months, did you worry whether your food would run out before you got money to buy more?: Never true Do you have trouble paying for medicines?: No Do you have trouble getting transportation to medical appointments?: No Do you have trouble paying your heating and electricity bill?: No Do you have trouble taking care of your child, family member or friend?: No Do you have trouble with day-to-day activities such as bathing, preparing meals, shopping, managing finances, etc.?: No Are you currently unemployed and looking for a job?: No Are you interested in more education?: No Please select the resources that you would like help with: None Currently or been in a relationship where the following occur: No concerns reported THRIVE Score: 0 AUDIT C Alcohol Use Questionnaire (AUDIT-C) 1. How often do you have a drink containing alcohol?: Never Total Score: 0 Score Reviewed/Action Taken: No ROSSI-7 AMB Questionnaire ROSSI-7 Date ROSSI - 7 assessed: 03/30/24 Feeling nervous, anxious, or on edge: 1 = Several days Not being able to stop or control worryin = Not at all Worrying too much about different things: 0 = Not at all Trouble relaxin = Not at all Being so restless that it is hard to sit still: 0 = Not at all Becoming easily annoyed or irritable: 1 = Several days Feeling afraid as if something awful might happen: 0 = Not at all Total ROSSI-7 score (0-4 normal; 5-9 mild; 10-14 moderate; 15-21 severe): 2 Source: Developed by Drs. Mehdi Luciano, Jaden Cavazos and colleagues, with an educational shawna from [employer]. ROSSI-7 Assessment Billing ROSSI-7 Assessment Tool: ROSSI-7 Assessment 86049 Review of Systems Const All systems reviewed & are unremarkable except as noted in HPI and below Card Denies chest pain at rest, Denies chest pain with activity, Denies edema, Denies irregular heart rhythm, Denies claudication, Denies dyspnea, Denies dyspnea on exertion, Denies orthopnea, Denies paroxysmal nocturnal dyspnea and Denies slow heart rate Resp Denies cough, Denies dyspnea and Denies dyspnea on exertion Physical exam (Primary Care) Vital Signs: Last Vital Signs Pulse 91 04/06/25 15:56 Resp 18 04/06/25 15:56 BP 100/62 04/06/25 15:56 Pulse Ox 98 04/06/25 15:56 Oxygen Delivery Method Room Air 04/06/25 15:56 BMI result Body Mass Index 20.7 Tobacco/Smoking Status: Tobacco use Status Tobacco use date assessed 04/06/25 04/06/25 16:08 Patient Tobacco Use Status Former Tobacco user 04/06/25 16:08 Tobacco use type Cigarette 04/06/25 16:08 e-Cigarette/Vaping Use Never Used 04/06/25 16:08 PHQ-9: PHQ-9 Score PHQ-9: Total score 1 04/06/25 16:13 Depression Screening Interpretation: Negative Thrive Assessment: Date of Thrive Assessment Date Thrive assessed 03/30/25 04/06/25 16:08 Currently or been in a relationship where the following occur: No concerns reported HENMT Head: Yes normal to inspection, Yes normocephalic and Yes atraumatic Ears: external ears normal Eyes General: appearance normal, both eyes and all related structures Eyelids: Yes eyelids normal Conjunctivae: conjunctivae normal Neck Neck: Yes normal visual inspection and Yes supple Resp Effort & Inspection: normal respiratory effort Auscultation: clear to auscultation bilaterally Cardio Jugular venous distension: no JVD Rate: regular rate Rhythm: regular rhythm Heart sounds: S1 normal heart sound present and S2 normal heart sound present GI Inspection: Yes normal to inspection Palpation (GI): Soft to palpation and nontender Auscultation: normal bowel sounds Skin General skin exam: no rashes or lesions noted Neuro General: no focal motor deficits Extrem General: Yes full ROM Psych Appearance: grossly normal Coding Level of Care Code Est Pt Prev Care 40-64y(71740) Diagnoses Physical exam Z00.00 Additional Codes ROSSI-7 Assessment Billing - ROSSI-7 Assessment Tool: ROSSI-7 Assessment 08876 ([id number]) PHQ-9 - 00289 - PHQ-9 Billing: Yes ([id number]) Time Spent (min) 30 Assessment & Plan Assessment & Plan (1) Physical exam: Code(s): Z00.00 - Encounter for general adult medical examination without abnormal findings Category: Medical Plan Plan 1. Physical exam Repeat in a year. Continue mammogram yearly. Open access for colonoscopy.
[2025-04-06 15:56] VITALS: BP 100/62; PULSE 91; RESP 18; O2SAT 98; BMI 20.7
== END 2025-04-06 16:25 | disposition home or self-care (01) ==
LOC: HO.HMCH 15:51
PROVIDERS: PCP Internal Medicine; Visit Provider Internal Medicine
DX: Z00.00 Encounter for general adult medical examination without abnormal findings (principal)

== ENCOUNTER → 2025-04-06 15:50 | Outpatient (BNVA) | payer OTHER, SELFPAY | PROVIDERS: PCP Internal Medicine; Visit Provider Internal Medicine | DX: Z00.00 Encounter for general adult medical examination without abnormal findings (principal); Z79.899 Other long term (current) drug therapy | CPT/HCPCS: 96127 ==